=== PATIENT | male | born 1935 | race Caucasian/White ===

== ENCOUNTER 2024-03-27 06:33 | Outpatient (CLI) | payer MEDICARE, OTHER | END 2024-03-27 23:59 | disposition home or self-care (01) | LOC: MRI02 06:33 | PROVIDERS: ATTEND Pediatrics Sports Medicine | DX: M47.817 Spondylosis without myelopathy or radiculopathy, lumbosacral region (principal); M51.370 Other intervertebral disc degeneration, lumbosacral region with discogenic back pain only; M48.07 Spinal stenosis, lumbosacral region; M46.1 Sacroiliitis, not elsewhere classified | CPT/HCPCS: 72148 ==